=== PATIENT | female | born 1985 | race Caucasian/White ===

== ENCOUNTER 2024-01-10 10:30 | Emergency (ER) | payer OTHER, BC, SELFPAY ==
[2024-01-10 10:32] VITALS: BP 150/100; PULSE 105; RESP 16; TEMP 36.5; O2SAT 99; BMI 35.4
--- NOTE | 2024-01-10 10:50 | PC.NURSE ---
DR MATTA AT BEDSIDE
--- NOTE | 2024-01-10 10:56 | XR_ITS ---
FINAL REPORT CLINICAL HISTORY: fall, anterior tibia and prox tibia pain FINDINGS: Right tibia fibula Two views were obtained. There is no acute fracture or dislocation. The joint spaces appear normal. No soft tissue abnormality is identified. IMPRESSION: No acute process. Reviewed, Interpreted and Dictated by Shon Chamberlain III, MD Transcribed by Maryse Nugent Authenticated and [facility]
--- NOTE | 2024-01-10 10:56 | XR_ITS ---
FINAL REPORT CLINICAL HISTORY: fall, lateral and anterior pain with crepitus FINDINGS: Right knee Three views were obtained. There is no acute fracture or dislocation. The joint spaces appear normal. No soft tissue abnormality is identified. IMPRESSION: No acute process. Reviewed, Interpreted and Dictated by Shon Chamberlain III, MD Transcribed by Maryse Nugent Authenticated and [facility]
--- NOTE | 2024-01-10 10:56 | XR_ITS ---
FINAL REPORT CLINICAL HISTORY: fall, R lateral pain diatally FINDINGS: Right femur Two views were obtained. There is no acute fracture or dislocation. The joint spaces appear normal. No soft tissue abnormality is identified. IMPRESSION: No acute process. Reviewed, Interpreted and Dictated by Shon Chamberlain III, MD Transcribed by Maryse Nugent Authenticated and [facility]
--- NOTE | 2024-01-10 10:56 | XR_ITS ---
FINAL REPORT CLINICAL HISTORY: fall, distal lateral epicondyle pain and AC pain FINDINGS: Right elbow Three views were obtained. There is a nondisplaced fracture of the radial head seen on the lateral view. There is a joint effusion or hemarthrosis. IMPRESSION: Nondisplaced fracture of the radial head with a joint effusion or hemarthrosis. Reviewed, Interpreted and Dictated by Shon Chamberlain III, MD Transcribed by Maryse Nugent Authenticated and [facility]
--- NOTE | 2024-01-10 10:56 | XR_ITS ---
FINAL REPORT CLINICAL HISTORY: fall, proximal/medial pain and swelling FINDINGS: Right forearm Two views were obtained. There is no acute fracture or dislocation. The joint spaces appear normal. No soft tissue abnormality is identified. IMPRESSION: No acute process. Reviewed, Interpreted and Dictated by Shon Chamberlain III, MD Transcribed by Maryse Nugent Authenticated and . [facility]
--- NOTE | 2024-01-10 10:56 | XR_ITS ---
FINAL REPORT CLINICAL HISTORY: fall, distal lateral epicondyle pain and AC pain FINDINGS: Right humerus Two views were obtained. There is no acute fracture or dislocation. The joint spaces appear normal. No soft tissue abnormality is identified. IMPRESSION: No acute process. Reviewed, Interpreted and Dictated by Shon Chamberlain III, MD Transcribed by Maryse Nugent Authenticated and [facility]
[2024-01-10 11:00] VITALS: BP 139/94
--- NOTE | 2024-01-10 11:04 | ED_ITS ---
Discharge Plan Disposition Patient Disposition: Home, Self-Care Activity Restrictions/Add. Instructions Additional Instructions/Restrictions: Call your family doctor to establish care for this visit to the emergency department and schedule follow-up within 48 hours to ensure improvement. If you have any worsening of your condition or any other concerning signs or symptoms, return to the emergency department or your primary care doctor for further evaluation. Take Tylenol 1000 mg every 6 hours (4 times daily) and ibuprofen 400 mg every 6 hours (4 times daily) as needed with food and water to prevent GI upset and kidney damage. Clinical Impressions Clinical Impression: Acute pain of right knee, Elbow pain, right, Fall down stairs Discharge ED Provider: Ankit Suh General Adult HPI General Chief complaint: Fall Stated complaint: AO Pain in R elbow/R leg Time Seen by Provider: 01/10/24 10:33 Mode of Arrival: Wheelchair Source of Information: Patient Limitations: No Limitations Description of Symptoms (Recalled from ER Triage Doc. by RN): Pt reports mechanical fall down 4-5 steps 30 min prior to arrival. C/o painto right arm and right knee. She is unable to bear weight on right leg w/o pain. She is able to flex and extend both her right leg and right elbow. No obvious deformities. Abrasions to right vaca. History of Present Illness HPI narrative: This is a 38-year-old female no relevant medical history presenting with fall. Patient states that she fell down 4-5 concrete steps just prior to arrival. She landed on her right side bracing on an elbow that was bent to 90 degrees. Hit her knee, right vaca, right elbow. Did not strike her head. Did not lose consciousness. Was able to stand, but had to give acute pain in her right knee, so she came to the emergency department at the recommendation of a cartographic engineer who saw her fall. Currently having moderate pain in her elbow that radiates inferiorly toward her fingers as well as moderate to severe pain in her knee with any range of motion. Related Data Allergies Allergy/AdvReac Type Severity Reaction Status Date / Time ondansetron [From Zofran] AdvReac Verified 01/10/24 11:04 [facility] Disclaimer: The information contained in this section may have been updated after the patient was seen, as this information can be updated by other users. Social History Smoking Status: Never smoker alcohol intake: never current occupational status: employed Travel in the last 8 weeks: None ROS Obtained: Yes All systems reviewed & no additional complaints except as documented Physical Exam General General appearance: alert Head Head exam: atraumatic and normocephalic Eye Eye exam: Present normal appearance, PERRL and EOMI ENT ENT exam: Present mucous membranes moist Neck Neck exam: Present trachea midline Chest Chest inspection: Present normal inspection and symmetric chest wall rise Respiratory Respiratory exam: Present normal lung sounds bilaterally; Absent respiratory distress, wheezes, stridor, accessory muscle use or prolonged expiratory phase Cardiovascular Cardiovascular exam: Present regular rate and normal rhythm Abdominal Exam Abdominal exam: Present soft; Absent distention, tenderness, guarding, rebound or rigidity Extremities Exam Extremities exam: Present other (See MDM); Absent edema Neurological Exam Neurological exam: Present alert, oriented X3 and CN II-XII intact Skin Skin exam: Present warm and dry; Absent cyanosis, diaphoresis or pallor Medical Decision Making Medical Records Medical records reviewed: Yes I reviewed the patient's medical records. Marco Inquiry Pt receiving controlled substance: No Marco was queried for this patient: No Vital Signs: 01/10/24 10:32 01/10/24 11:00 Temperature 97.7 F Temperature Source Oral Pulse Rate [Left Radial] 105 H Respiratory Rate 16 Blood Pressure 139/94 H Blood Pressure [Left Arm] 150/100 H Blood Pressure Mean 108 Blood Pressure Mean [Left Arm] 116 Blood Pressure Source [Left Arm] Automatic Cuff Blood Pressure Position [Left Arm] Sitting 02 Sat by Pulse Oximetry 99 Oxygen Delivery Method Room Air Orders (Tests/Meds): ED MEDICATIONS Discontinued Medications Generic Name Dose Route Start Last Admin Trade Name Henrik PRN Reason Stop Dose Admin Acetaminophen 1,000 mg 01/10/24 10:56 01/10/24 11:08 Acetaminophen 500mg Tab PO 01/10/24 10:57 1,000 mg ONCE ONE Administration Ibuprofen 600 mg 01/10/24 10:56 01/10/24 11:08 Ibuprofen 600 Mg Tablet PO 01/10/24 10:57 600 mg ONCE ONE Administration ORDERS Category Date Time Status Elbow XR right minimum 3 views [XR elbow RT min 3V] Exams 01/10/24 10:56 Completed Stat Femur XR right 2 views [XR femur RT 2V] Stat Exams 01/10/24 10:56 Completed Fibula/tibia XR right 2 views [XR tibia fibula RT 2V] Exams 01/10/24 10:56 Taken Stat Forearm XR right 2 views [XR forearm RT 2V] Stat Exams 01/10/24 10:56 C ompleted Humerus XR right [XR humerus RT] Stat Exams 01/10/24 10:56 Completed Knee XR right 3 views [XR knee RT 3V] Stat Exams 01/10/24 10:56 Completed Medical Decision Narrative: This is a 38-year-old female no relevant medical history presenting with fall. Patient states that she fell down 4-5 concrete steps just prior to arrival. She landed on her right side bracing on an elbow that was bent to 90 degrees. Hit her knee, right vaca, right elbow. Did not strike her head. Did not lose consciousness. Was able to stand, but had to give acute pain in her right knee, so she came to the emergency department at the recommendation of a cartographic engineer who saw her fall. Currently having moderate pain in her elbow that radiates inferiorly toward her fingers as well as moderate to severe pain in her knee with any range of motion. History was obtained via conversation with patient. On arrival, patient hemodynamically stable, alert, oriented x4, appropriate, GCS 15, moving all extremities spontaneously, pupils equal and reactive to light. Full physical exam performed and significant for Tenderness extending from midshaft humerus on the right down to mid forearm on the right. Tenderness is primarily in antecubital fossa and lateral epicondyles. No obvious deformity. Neurovascularly intact and range of motion intact. Right lower extremity with severe tenderness and superficial skin tears about knee and anterior vaca. No outward signs of deformity. Range of motion is intact, but limited secondary to pain. Neurovascularly intact as well. She does have structurally intact knee, but crepitus about patella. Differential includes fracture, sprain, strain, dislocation, among others. Patient was given 1 g Tylenol p.o., 600 mg ibuprofen p.o. for symptomatic management and correction of underlying abnormalities. Workup independently interpreted and significant for radial head fracture with presumed hemarthrosis. Otherwise negative right upper extremity films and right lower extremity films. See radiology read for full review of final results. On reevaluation, patient resting comfortably in her chair. She was placed in a sling Given patient presentation, workup, history, this most likely represents radial head fracture in the setting of fall with knee pain without complication. Because patient at baseline without signs or symptoms of clinical decompensation, deemed appropriate for discharge. Results were relayed to patient who voiced understanding and were agreeable to outpatient management and follow up. At the time of discharge the patient was hemodynamically stable, tolerating PO, and mobilizing appropriately. Patient is in from out of town, but will be able to have follow-up at home institution with orthopedics. Critical Care Critical Care Time Critical Care Time: No
[2024-01-10] MEDS: IBUPROFEN 600 MG TABLET PO (11:08)
[2024-01-10] MEDS: ACETAMINOPHEN 500MG TAB 1000 MG PO (11:08)
--- NOTE | 2024-01-10 12:11 | PC.NURSE ---
Rounded on pt to see if they had any needs. pt asked for a blanket and one was retrieved and given to her
[2024-01-10 13:11] VITALS: BP 122/86; PULSE 90; RESP 18; TEMP 36.5; O2SAT 100
--- NOTE | 2024-01-15 22:47 | PC.NURSE ---
Chart accessed for ortho paperwork
== END 2024-01-10 13:18 | disposition home or self-care (01) ==
PROVIDERS: Emergency Provider Emergency Medicine
DX: M25.561 Pain in right knee (principal); S52.124A Nondisplaced fracture of head of right radius, initial encounter for closed fracture; W10.9XXA Fall (on) (from) unspecified stairs and steps, initial encounter
CPT/HCPCS: 73060; 73080; 73090; 73552; 73562; 73590; 99285